=== PATIENT | male | born 1995 | race African-American/Black ===

== ENCOUNTER 2018-12-16 22:37 | Emergency (ER) | payer SELFPAY ==
[2018-12-16] MEDS ORDERED: Ibuprofen 600 MG Tab PO ONE (22:45)
--- NOTE | 2018-12-16 22:47 | EDM.PDOC ---
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 came came to the ed due extreme coldness of his toes and fingers. Pt noticed a blister at his right distal index finger. Pt has FROM of all finger. CAP refill was initially delayed. No F/C, no N/V/D no dizziness, no other acute medical issues BP 126/68 RR 18 Pulse ox 98% on RA temp 36.4 Pulse 76 Onset Date: 12/16/18 Onset Time: 21:40 Duration: Hour(s): Location: Reports: Upper Extremity, Left, Upper Extremity, Right, Lower Extremity, Left, Lower Extremity, Right (hands and feet) Quality: Reports: Burning, Dull, Stabbing Severity: Mild Improves with: Reports: Eating Worsens with: Reports: Cold Therapy Context: Reports: Other (exposed to extreme cold at work) Associated Symptoms: Reports: No Other Symptoms fingers and toes Pain Score (Numeric/FACES): 7 - Related Data Allergies Allergy/AdvReac Type Severity Reaction Status Date / Time No Known Allergies Allergy Verified 12/16/18 22:48 Home Meds: Home Meds NK [No Known Home Meds] 12/16/18 [History] ED ROS GENERAL - Review of Systems Review Of Systems: See Below Constitutional: Reports: No Symptoms HEENT: Reports: No Symptoms Respiratory: Reports: No Symptoms Cardiovascular: Reports: No Symptoms Endocrine: Reports: No Symptoms GI/Abdominal: Reports: No Symptoms : Reports: No Symptoms Musculoskeletal: Reports: No Symptoms Skin: Reports: Other (cold tore and fingers) Neurological: Reports: No Symptoms Psychiatric: Reports: No Symptoms Hematologic/Lymphatic: Reports: No Symptoms Immunologic: Reports: No Symptoms ED EXAM, SKIN/RASH Exam: See Below Exam Limited By: No Limitations General Appearance: Alert, WD/WN, Mild Distress, Moderate Distress Eye Exam: Bilateral Eye: Normal Inspection Ears: Normal External Exam Nose: Normal Inspection, Normal Mucosa, No Blood Throat/Mouth: Normal Inspection, Normal Lips, Normal Teeth, Normal Gums, Normal Voice, No Airway Compromise Head: Atraumatic, Normocephalic Neck: Normal Inspection, Supple, Non-Tender, Full Range of Motion Respiratory/Chest: No Respiratory Distress, Lungs Clear, Normal Breath Sounds, Chest Non-Tender Cardiovascular: Normal Peripheral Pulses, Regular Rate, Rhythm, No Edema, No Gallop GI/Abdominal: Normal Bowel Sounds, Soft, Non-Tender, No Organomegaly, No Mass, Pelvis Stable (Male) Exam: Deferred Rectal (Males) Exam: Deferred Back Exam: Normal Inspection, Full Range of Motion Extremities: Normal Range of Motion, No Pedal Edema, Slow Capillary Refill, Mottled. 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 came came to the ed due extreme coldness of his toes and fingers. Pt noticed a blister at his right distal index finger. Pt has FROM of all finger. CAP refill was initially delayed. No F/C, no N/V/D no dizziness, no other acute medical issues BP 126/68 RR 18 Pulse ox 98% on RA temp 36.4 Pulse 76 PE: WNWD Black mail with cold fingers and a blister at his right index finger. Imaging/Labs: Not indicated Impression: Second degree dorado bite right index finger, 1st degree dorado bite feet and hands Tx: feet and hands were warmed up with warm sheets Reexam: Improved. Pt requested to be D/C'd in order to go back to work. Plan: D/C with instructions Last Recorded V/S: Last Vital Signs Temp 36.4 C 12/16/18 22:48 Pulse 76 12/16/18 22:48 Resp 17 12/16/18 22:48 BP 123/68 12/16/18 22:48 Pulse Ox 98 12/16/18 22:48 - Orders/Labs/Meds Meds: Medications Discontinued Medications Generic Name Dose Route Start Last Admin Trade Name Fortino PRN Reason Stop Dose Admin Ibuprofen 600 mg 12/16/18 22:45 12/16/18 22:56 Motrin PO 12/16/18 22:46 600 mg ONETIME ONE Administration Departure - Departure Time of Disposition: 23:22 Disposition: Home, Self-Care 01 Condition: Good Clinical Impression: Frostbite of both hands Frostbite of both feet Qualifiers: Encounter type: initial encounter Qualified Code(s): T33.821A - Superficial frostbite of right foot, initial encounter - Discharge Information Instructions: Frostbite Referrals: PCP,Not In Area [Primary Care Provider] - Forms: ED Department Discharge, ED Return to Work/School Form Additional Instructions: Please keep your extremities dry and warm. Please f/u with your PMD, sarika back if your symptoms get worse acutely
== END 2018-12-16 23:30 | disposition home or self-care (01) ==
LOC: FB.ED 22:37
DX: T33.532A Superficial frostbite of left finger(s), initial encounter (principal); T33.531A Superficial frostbite of right finger(s), initial encounter; T33.822A Superficial frostbite of left foot, initial encounter; T33.821A Superficial frostbite of right foot, initial encounter; T33.522A Superficial frostbite of left hand, initial encounter; T33.521A Superficial frostbite of right hand, initial encounter; Y99.0 Civilian activity done for income or pay; X31.XXXA Exposure to excessive natural cold, initial encounter
CPT/HCPCS: 99283 ×2; A9270